=== PATIENT | male | born 1980 | race Caucasian/White ===

== ENCOUNTER 2021-07-03 08:18 | Outpatient (CLI) | payer BC, SELFPAY ==
--- NOTE | 2021-07-03 08:25 | FL_ITS ---
WS: [id number] Exam: FL barium swallow [id number] Date/Time of Exam: 07/03/2021 8:29 AM Reason For Exam: [email or web address] Fluoroscopy time: 3.5 minutes Preliminary survey of the chest is unremarkable. Swallowing function at the level of oropharynx was normal. Patulous dilated fluid-filled esophagus is noted with the severe stricture at the gastroesophageal junction. Findings suggest achalasia. No obv ious esophageal mass seen. The patient swallowed the barium pill without incident however the pill ap pears to be retained in the dilated distal esophagus and does not pass into the stomach. FL/FL barium swallow [id number] IMPRESSION: 1. Markedly dilated fluid-filled patulous esophagus with severe stricture at th e gastroesophageal junction consistent with achalasia.
== END 2021-07-03 08:19 | disposition home or self-care (01) ==
PROVIDERS: PCP Family Medicine; Visit Provider Internal Medicine Infectious Disease
DX: R13.10 Dysphagia, unspecified (principal)
CPT/HCPCS: 74220

== ENCOUNTER → 2021-10-14 12:04 | Outpatient (BNVA) | payer BC, SELFPAY | PROVIDERS: PCP Family Medicine; Referring Provider Internal Medicine Infectious Disease; Visit Provider Internal Medicine | DX: R76.8 Other specified abnormal immunological findings in serum (principal); R63.4 Abnormal weight loss; M25.50 Pain in unspecified joint; R53.83 Other fatigue; R42 Dizziness and giddiness | CPT/HCPCS: 36415; 81003; 82024; 82550; 82728; 82784; 83516; 83540; 86140; 86160; 86162; 86200; 86235; 86255; 86376; 86431; 87806 ==

== ENCOUNTER → 2021-10-29 08:05 | Outpatient (BNVA) | payer BC, SELFPAY | PROVIDERS: PCP Family Medicine; Visit Provider Internal Medicine | DX: R76.8 Other specified abnormal immunological findings in serum (principal); M25.50 Pain in unspecified joint; R42 Dizziness and giddiness; R53.83 Other fatigue; R63.4 Abnormal weight loss | CPT/HCPCS: 80053; 82533; 84403; 85025; 85651; 86003; 86008; 86140 ==

== ENCOUNTER → 2022-12-20 12:45 | Outpatient (BNVA) | payer OTHER, SELFPAY | PROVIDERS: PCP Family Medicine; Visit Provider Nurse Practitioner Family | DX: S59.912A Unspecified injury of left forearm, initial encounter (principal); M79.602 Pain in left arm; X58.XXXA Exposure to other specified factors, initial encounter | CPT/HCPCS: 73090 ==